=== PATIENT | female | born 1985 ===

== ENCOUNTER → 2018-10-14 | Outpatient (CLI) | payer SELFPAY ==
[~2018-10-14] MED LIST: CETI-176 PO; ESC10 PO; PREN-127 PO
== END ==
LOC: LAB 16:25
PROVIDERS: ATTEND Obstetrics & Gynecology
DX: Z34.01 Encounter for supervision of normal first pregnancy, first trimester (principal)
CPT/HCPCS: 87491; 87591

== ENCOUNTER → 2019-01-20 | Outpatient (CLI) | payer SELFPAY ==
--- NOTE | 2019-01-20 13:37 | RADIOLOGY IMAGING REPORT ---
FACILITY: [facility] [place] PATIENT NAME: Yamilet Pineda : 1985 MR: [id number] V: [id number] EXAM DATE: ORDERING PHYSICIAN: FRANKIE URBAN TECHNOLOGIST: Location: [facility] Patient: Yamilet Pineda : 1985 Visit/Account:[id number] Date of Sevice: 01/20/2019 EXAMINATION: Ultrasound transabdominal OB > 14 weeks with anatomic evaluation HISTORY: Anatomic survey COMPARISON: None. TECHNIQUE: Transabdominal imaging was performed for assessment of the fetus and maternal pelvic structures. T ransvaginal imaging was not performed. FINDINGS: Placenta: Posterior without previa. Uterus: Gravid, otherwise normal Cervix: Long and closed. A transvaginal scan was not performed for cervical length. On the transabd ominal images the cervix appears to be approximately 3.9 cm in length Maternal Ovaries: Not visualized. Maternal and other adnexa findings: Not evaluated Intrauterine gestations: One. presentation: Breech heart rate: Normal at 143 bpm Amniotic fluid index: 21.57 cm Largest amniotic fluid pocket: 5.7 cm Gestational Parameters: BPD: 5.32 cm 22 weeks/ two days, 31% HC: 20.56 cm 22 weeks/ five days, 41% AC: 18.13 cm 23 weeks/ zero days, 55% FL: 4.03 cm 23 weeks/ one days, 35% Average ultrasound age (AUA): 22 weeks/six days, BALWINDER 05/20/2019 Estimated gestational age by BALWINDER: 22 weeks/four days, BALWINDER 05/22/2019 Estimated weight (EFW): By 47 grams +/- 80 grams EFW for BALWINDER: 61 percentile Anatomic Survey: Intracranial structures, 4-chamber heart, stomach, kidneys, urinary bladder, spine, 3-vessel cord and cord insertion are unremarkable. Two upper and two lower extremities visualized. Cardiac ventricula r outflow tracts, palate and lips are unremarkable in appearance. IMPRESSION: Single viable fetus in breech presentation with an estimated gestational age by measurem ents of 22 weeks and six days. Estimated age by LMP is 22 weeks and four days. Transvaginal scan was not performed to evaluate cervical length. The cervical length by transabdomin al images was approximately 3.9 cm Report Dictated By: Maddison Teran MD at 01/20/2019 1:24 PM Report E-Signed By: Maddison Teran MD at 01/20/2019 1:33 PM WSN:[email or web address]
== END ==
LOC: US 11:04
PROVIDERS: ATTEND Obstetrics & Gynecology
DX: Z02.9 Encounter for administrative examinations, unspecified (principal)

== ENCOUNTER → 2019-03-03 | Outpatient (CLI) | payer SELFPAY ==
[~2019-03-03] MED LIST changes: +CLOB15OI16 TP; +DIPH0.5S2 IM; +RHO(150015 IM
[2019-03-03 15:54] LABS: PLATELET COUNT, AUTOMATED 259 K/uL (150-450)
== END ==
LOC: LAB 08:20
PROVIDERS: ATTEND Obstetrics & Gynecology
DX: Z34.82 Encounter for supervision of other normal pregnancy, second trimester (principal)
CPT/HCPCS: 36415; 82950; 85025

== ENCOUNTER → 2019-04-08 | Outpatient (CLI) | payer SELFPAY ==
--- NOTE | 2019-04-08 14:30 | RADIOLOGY IMAGING REPORT ---
FACILITY: [facility] [place] PATIENT NAME: Yamilet Pineda : 1985 MR: [id number] V: [id number] EXAM DATE: ORDERING PHYSICIAN: BILLY LOUIS TECHNOLOGIST: Location: [facility] Patient: Yamilet Pineda : 1985 Visit/Account:[id number] Date of Sevice: 04/08/2019 EXAMINATION: Ultrasound transabdominal OB > 14 weeks with anatomic evaluation HISTORY: Size greater than dates COMPARISON: January 20, 2019 TECHNIQUE: Transabdominal imaging was performed for assessment of the fetus and maternal pelvic structures. T ransvaginal imaging was not performed. FINDINGS: Placenta: Posterior without previa. Uterus: Gravid, otherwise normal Cervix: Not evaluated Maternal Ovaries: Not visualized. Maternal and other adnexa findings: Not evaluated Intrauterine gestations: One. presentation: Cephalic heart rate: Normal and regular at 138 bpm Amniotic fluid index: 22.25 cm Largest amniotic fluid pocket: 7.92 cm Gestational Parameters: BPD: 8.9 cm 36 weeks/ one days, 95% HC: 32.2 cm 36 weeks/ free days, 81% AC: 30.8 cm 34 weeks/ six days, 81% FL: 6.69 cm 34 weeks/ three days, 59% Average ultrasound age (AUA): 35 weeks/four days, BALWINDER 05/09/2019 Estimated gestational age by BALWINDER: 33 weeks/five days, BALWINDER 05/22/2019 Estimated weight (EFW): 2560 g grams +/- 374 grams EFW for BALWINDER: 80 percentile Anatomic Survey: Anatomic survey not performed IMPRESSION: Single viable fetus in cephalic presentation with an estimated gestational age by measur ements of 35 weeks and four days. Estimated gestational age by LMP is 33 weeks and five days. The estimated weight is 2560 g equivalent to the 80th percentile SHAWNA measured 22.25 with the MVP at 7.92 Report Dictated By: Maddison Teran MD at 04/08/2019 2:20 PM Report E-Signed By: Maddison Teran MD at 04/08/2019 2:25 PM WSN:VINNY
== END ==
LOC: US 12:50
PROVIDERS: ATTEND Obstetrics & Gynecology
DX: O26.843 Uterine size-date discrepancy, third trimester (principal)
CPT/HCPCS: 76815

== ENCOUNTER → 2019-04-28 | Outpatient (CLI) | payer SELFPAY | LOC: LAB 11:32 | PROVIDERS: ATTEND Obstetrics & Gynecology | DX: Z36.85 Encounter for antenatal screening for Streptococcus B (principal) | CPT/HCPCS: 87081 ==

== ENCOUNTER 2019-05-16 06:13 | Inpatient (IN) | payer SELFPAY ==
[~2019-05-16] VITALS: Ht 165.1 cm; Wt 77.6 kg
[2019-05-16] MEDS: PENICILLIN G 2.5 MILLUN/100 ML 100 ML IVPB SCH ×4 (01:42→20:19)
[2019-05-16] MEDS ORDERED: FLUSH 10 ML SYR IVP PRN (06:15)
[2019-05-16] MEDS ORDERED: FAMOTIDINE(*) 20MG/50ML PREMIX 50 ML IVPB PRN (06:15)
[2019-05-16] MEDS ORDERED: METOCLOPRAMIDE 10 MG/2 ML SDV IVP PRN (06:15)
[2019-05-16] MEDS ORDERED: OXYTOCIN 30 UNIT/NS 500 ML 500 ML IV PRN ×2 (06:15→19:09)
[2019-05-16] MEDS ORDERED: LIDOCAINE 1% LOCAL 300 MG/30ML INJ PRN (06:15)
[2019-05-16] MEDS ORDERED: LIDOCAINE/SOD BICARB 8.4% SYR SC PRN (06:15)
[2019-05-16] MEDS ORDERED: fentaNYL CITR 100 MCG/2 ML AMP IVP PRN (06:15)
[2019-05-16] MEDS ORDERED: ceFAZolin(*) 2GM/D5W 50ML 50 ML IVPB PRN (06:15)
[2019-05-16 06:30] VITALS: BP 118/68; Ht 165.1 cm; Wt 77.6 kg
[2019-05-16] MEDS ORDERED: PENICILLIN G 5 MILLUN VIAL 5 MIU in NS(*) 0.9% 100 ML MINI-BAG 100 ML IVPB ONE (06:30)
[2019-05-16] MEDS: LR(*) 1000 ML BAG 1,000 ML IV SCH ×2 (06:47→19:14)
[2019-05-16 06:57] LABS: PLATELET COUNT, AUTOMATED 236 K/uL (150-450)
--- NOTE | 2019-05-16 09:46 | History & Physical ---
History of Present Illness Age of Patient: 33 : 4 Para or TPAL: 3 EDC per LMP: May 22, 2019 EDC per U/S: May 16, 2019 Estimated Gestational Age: 39.1 Chief Complaint IUP at 39 1/7 here for IOL History of Present Illness 33 year old here for IOL due h/o precipitous delivery and living more than 1 hr from hospital. healthy. GBS +. RH- and rec'd rhogam at 28 weeks. History Patient's Blood Type: A Negative Rubella Status: Immune Group B Strep Screen: Positive Allergies: Coded Allergies: Gadolinium-Containing Contrast Medi (Verified Allergy, Mild, HIVES, 04/28/19) acetaminophen (Verified Allergy, Unknown, SLEEPY, 04/28/19) PT REPORTS "IT MAKES ME SLEEPY" animal dander (Verified Allergy, Unknown, ITCHING, 10/14/18) grass pollen (Verified Allergy, Unknown, 10/14/18) iodine (Verified Allergy, Unknown, HIVES, 10/14/18) pollen extracts (Verified Allergy, Unknown, 10/14/18) Med Rec Home Meds Active Scripts Clobetasol Propionate (CLOBETASOL PROPIONATE) 15 Gm Oint...g., 1 ANDREA TP BID, #1 TUBE 0 Refills Apply twice daily to affected area Prov:FRANKIE URBAN MD 02/17/19 Reported Medications Vits W-Ca,Fe,Fa(<1MG) ( VITAMINS) 1 Each Tablet, 1 EACH PO DAILY, TAB 10/14/18 Escitalopram Oxalate (LEXAPRO) 10 Mg Tab, 10 MG PO, TAB 10/14/18 Cetirizine Hcl (ZYRTEC) 10 Mg Tablet, 10 MG PO QDAY, TAB 10/14/18 Exam General Exam Vital Signs Vital Signs Date Time Temp Pulse Resp B/P (MAP) Pulse Ox O2 Delivery O2 Flow Rate FiO2 05/16/19 06:30 98.3 86 16 118/68 (85) 98 Room Air General Apperance: Alert/Awake/No Acute Distress Neuro: No Gross deficits Eyes: Normal Extraocular Movement & Vison Respiratory: No Respiratory Distress Abdomen: Gravid - Non-Tender Extremities: No Cyanosis,Clubbing or Edema Integumentary: Skin Intact without Lesions or Rash Psychological: Alert & Oriented X3, Appropriate Mood & Affect Cervical Dialation: 4 Cervical Effacement (%): 70 Cervical Consistency: Soft Cervical Position: Anterior Station: -2 Presentation: Vertex (confirmed by BSUS) Uterine Contractions(Q min): 0 Uterine Contraction Strength: Mild UC Resting Tone: Soft Fetus Feeling Movement?: Yes Heart Tone Variabilty: Moderate FHT Accelerations: 15X15 FHT Decelerations: None FHT Category: I Medical Decision Making Data Points Result Diagram: 05/16/19 0628 Assessment and Plan TURNER OFF Assessment: Stable TURNER OFF Plan: Routine Labor/Induct Care Problems: (1) Supervision of elderly multigravida Assessment & Plan: GBS prophylaxis with PCN started. Will plan amniotomy after second dose of abx. Pt does not want pitocin if possible. Problem Qualifiers (1) Supervision of elderly multigravida: Trimester: third trimester Qualified Codes: O09.523 - Supervision of elderly multigravida, third trimester BILLY LOUIS DO May 16, 2019 09:46
[2019-05-16] MEDS ORDERED: TERBUTALINE SULF 1 MG/ML VIAL SUBQ PRN (20:45)
--- NOTE | 2019-05-16 21:52 | Labor Progress Note ---
Labor Subjective Progress Notes Subjective PT feeling pelvic pressure. On pitocin at this time, pit at 10 mu. Clear fluid leaking, SROM around 1430 earlier today. GBS prophylaxis continuing. 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
[2019-05-17] MEDS ORDERED: BUPIVACAINE 0.25% MPF INJ EPI PRN (01:00)
[2019-05-17] MEDS ORDERED: FENTANYL/ROPIVACAINE 100 ML BAG EPI PRN (01:00)
[2019-05-17] MEDS ORDERED: fentaNYL CITR 100 MCG/2 ML AMP IT PRN (01:00)
[2019-05-17] MEDS ORDERED: LIDO/EPI 2% MPF 1:200,000 20ML EPI PRN (01:00)
[2019-05-17] MEDS ORDERED: LIDOCAINE/PF 2% 200MG/10ML AMP 200 MG/10 ML AMPUL EPI PRN (01:00)
[2019-05-17] MEDS ORDERED: BUPIVACAINE 0.5% INJ 30ML VIAL EPI PRN (01:00)
[2019-05-17] MEDS ORDERED: ONDANSETRON 4 MG/2 ML VIAL ONE (01:12)
[2019-05-17] MEDS ORDERED: ePHEDrine 25 MG/5 ML DISP.SYR IVP ONE (01:13)
--- NOTE | 2019-05-17 02:02 | Anesthesia OB Pre-Anes Eval ---
History of Present Illness Anesthesia Start Date: May 17, 2019 Anesthesia Start Time: 01:13 OB Anesthesia Diagnosis: induction - elective EDC: May 22, 2019 : 6 Para: 3 Vital Signs: Vital Signs Pain Ratin Heart Tones: 121 Result Diagram: 05/16/19 0628 Height (Inches): 65.00 Weight (Pounds): 171 Past Medical History Medical History: no pertinent history Surgical History: noncontributory Previous Anesthesia: epidural Attended Childbirth Classes?: No Hx Anesthesia Reactions: No Hx Family Anesthesia Reaction: No Current Medications: pitocin, pain medication Home Meds Active Scripts Clobetasol Propionate (CLOBETASOL PROPIONATE) 15 Gm Oint...g., 1 ANDREA TP BID, #1 TUBE 0 Refills Apply twice daily to affected area Prov:FRANKIE URBAN MD 02/17/19 Reported Medications Vits W-Ca,Fe,Fa(<1MG) ( VITAMINS) 1 Each Tablet, 1 EACH PO DAILY, TAB 10/14/18 Escitalopram Oxalate (LEXAPRO) 10 Mg Tab, 10 MG PO, TAB 10/14/18 Cetirizine Hcl (ZYRTEC) 10 Mg Tablet, 10 MG PO QDAY, TAB 10/14/18 Allergies: Coded Allergies: Gadolinium-Containing Contrast Medi (Verified Allergy, Mild, HIVES, 04/28/19) acetaminophen (Verified Allergy, Unknown, SLEEPY, 04/28/19) PT REPORTS "IT MAKES ME SLEEPY" animal dander (Verified Allergy, Unknown, ITCHING, 10/14/18) grass pollen (Verified Allergy, Unknown, 10/14/18) iodine (Verified Allergy, Unknown, HIVES, 10/14/18) pollen extracts (Verified Allergy, Unknown, 10/14/18) Anesthesia OB ROS Neurological: No migraines/headaches, No seizures, No neuropathy, No other ENT: Denies Tooth caps, Denies Loose teeth, Denies Chipped teeth, Denies Dentures, Denies Bridges, Denies Retainers, Denies Veneers, Denies Implants, Denies Tongue ring, Denies Other Pulmonary: No asthma, No smoker (pks/day/yrs), No other Airway Class: ll Cardiovascular ROS: No edema, No arrhythmia, No other GI ROS: clear liquids Last Solids Date: May 17, 2019 Last Solids Time: 19:00 ROS: No Herpes, No STD(s), No Liver Disease, No Renal Disease, No Other Endocrine ROS: No diabetes, No gestational diabetes, No thyroid disorder, No other Musculoskeletal ROS: No low back pain, No low back injury, No scoliosis, No other ASA Classification: 2 Assessment and Plan Anesthesia Plan: RONEL CANAS CRNA May 17, 2019 02:01
--- NOTE | 2019-05-17 02:06 | Procedure Note ---
Anesthetic Placement Note Anesthesia Plan: CSE Permit for Anesthesia Signed: Yes Anesthesia Technique: Patient Sitting Anesthesia Prep: Chlorhexidine Interspace: L 3-4 Local Anesthetic: 1% Lidocaine Amount Local - cc's: 3 Anesthesia Needle: 17g Touhy/Schliff Anesthesia Attempts: 1 Loss of Resistance: Normal Saline Depth of GEETA (cm): 4 Epidural Needle Placement: No CSF, No Blood, No Parasthesia Intrathecal Needle: 27 Gauge Pencan Cerebral Spinal Fluid: Yes, Clear Catheter Insertion (cm): 4 (8cm @skin) Catheter Type: [place] - Spring Wound Epidural Dressing: Tegaderm Anesthesia Tray: Lot Number ([id number]), Expiration Date (04/21), Reference Number ([id number]) Anesthesia Medications: Intrathecal Dose: mcg Fentanyl (10), mg Marcaine MPF (2.5), Time (0124) Epidural Test Dose: 1.5 Lido/Epi (1:200,000), Dose - mL (3), Time (0126), Negative Epidural Infusion: 0.2% Ropivicaine, With Fentanyl 2mcg/ml, Start Time: (0150) Epidural Pump Setting: Bolus Dose - mL (8), Lockout - Minutes (20), Maintenance Rate - mL/hr (6), Maximum per Hour - mL (30) Complications: None RONEL HENSLEY CRNA May 17, 2019 02:06
[2019-05-17] MEDS ORDERED: PENICILLIN G 2.5 MILLUN/100 ML 100 ML IVPB SCH (03:00)
--- NOTE | 2019-05-17 05:53 | Anesthesia Progress Note ---
Assessment and Plan Anesthesia Plan: CSE Anesthesia Stop Day: May 17, 2019 Anesthesia Stop Time: 05:40 RONEL HENSLEY CRNA May 17, 2019 05:53
--- NOTE | 2019-05-17 05:54 | OB Delivery Note ---
Delivery Note Vaginal Delivery Type: Spont. Vaginal Delivery Delivery Date: May 17, 2019 Delivery Time: 05:17 Estimated Gestational Age(wks): 39 Delivery Anesthesia: Epidural Sex: Male [place] Apgars: 1 Minute (8), 5 Minute (9) Repair Needed: Episiotomy-Midline (repaired with 3.0 vicryl in usual fashion) Delivery Complications: Nuchal Cord (tight x1, delivered through) Notes: pt pushed to deliver a viable male in the BASILIO position over a second degree midline episiotomy. MLE performed due to nonreassuring status. Head and shoulders delivered with the following push. Nuchal cord x 1, tight, delivered through and reduced after delivery. placed on mom's chest. Nose and mouth bulb suctioned. 3VC clamped and cut after 30 sec delay. MLE repaired in usual fashion using 3.0 vicryl. Spontaneous delivery of intact placenta at 0521. EBL 250 cc. I performed entire delivery and repair unassisted. Contact Center Director in Attendence: BILLY Awad DO May 17, 2019 05:54
[2019-05-17] MEDS ORDERED: HYDROCORTISONE 2.5% CR 30GM TB PR PRN (05:55)
[2019-05-17] MEDS ORDERED: MEASLES,MUMP,RUBELLA VAC 0.5ML SUBQ ONE (05:55)
[2019-05-17] MEDS ORDERED: DIPHTH/TETANUS/ACEL. PERTUSSIS IM ONLY ONE (05:55)
[2019-05-17] MEDS ORDERED: INFLUENZA VIRUS VAC 0.5ML SYR IM ONLY ONE (05:55)
[2019-05-17] MEDS ORDERED: LANOLIN OINT 7 GM TUBE TP PRN (05:55)
[2019-05-17] MEDS ORDERED: GLYCERIN/WITCH HAZEL LEAF 1 PK TP PRN (05:55)
[2019-05-17] MEDS ORDERED: MAGNESIUM HYDROXIDE* 30ML UDCP PO PRN (05:55)
[2019-05-17] MEDS ORDERED: LIDOCAINE 1% LOCAL 300 MG/30ML 30 ML ONE (06:17)
[2019-05-17] MEDS ORDERED: LIDOCAINE 1% LOCAL 300 MG/30ML INJ PRN ×2 (07:20→07:25)
[2019-05-17] MEDS ORDERED: LR(*) 1000 ML BAG 2,000 ML ONE (07:23)
[2019-05-17 07:27] VITALS: BP 102/55
[2019-05-17] MEDS: IBUPROFEN 800 MG TAB PO SCH ×2 (09:49→17:11)
[2019-05-17] MEDS: BENZOCAINE 20% 60 ML BTL TP PRN (09:49)
[2019-05-17] MEDS: DOCUSATE CALCIUM 240 MG CAP PO SCH ×2 (09:50→20:22)
[2019-05-17] MEDS: MULTIVITAMINS (PRENATAL) TAB PO SCH (09:50)
[2019-05-17 11:35] VITALS: BP 126/74
--- NOTE | 2019-05-17 13:51 | Anesthesia Post Eval Note ---
Anesthesia Post Eval Note Vital Signs 05/17/19 11:35 Temp 98.3 Pulse 117 Resp 18 B/P (MAP) 126/74 (91) O2 Delivery Room Air Pt able to participate in Eval: Yes Cardiovascular Status: Satisfactory Respiratory Status: Satisfactory Pain Managment: Satisfactory PO Nausea/Vomiting: Satisfactory Temperature Management: Satisfactory Mental Status: Satisfactory, Alert, Oriented X3 Post-Op Hydration Status: Satisfactory, Tolerating PO Well, Voiding w/o Difficulty Anesthesia Type: CSE RONEL HENSLEY CRNA May 17, 2019 13:51
--- NOTE | 2019-05-17 14:19 | OB/GYN Progress Note ---
OB Subjective Progress Notes Subjective Pt is feeling well other than being very tired from the long labor. She did just wake up from a nap and feeling a little refreshed. She reports that she is tolerating her cramping and perineal pain well with ibuprofen. is going well and she denies nipple pain or discomfort. She would like to go home t omorrow. GI: POS Flatus; NEG Nausea, NEG Vomiting, NEG Bowel Movement : Voiding Well, Vaginal Bleeding, Moderate Pain: Mild, Tolerating PO Pain Meds Neurological: No Headache Eyes: No Visual Disturbances OB Objective Physical Exam Vital Signs Date Time Temp Pulse Resp B/P (MAP) Pulse Ox O2 Delivery O2 Flow Rate FiO2 05/17/19 11:35 98.3 117 18 126/74 (91) Room Air 05/16/19 06:30 98 Intake and Output 05/17/19 07:02 Intake Total 1100 ml Output Total 200 ml Balance 900 ml Intake Oral 800 ml IV Total 300 ml Output Urine Total 200 ml # Voids 4 General Appearance: Alert/Awake/No Acute Distress Neurological: No Gross deficits Eyes: Normal Extraocular Movement & Vison ENT: Normal Respiratory: No Respiratory Distress, Other (LS decreased, hx of asthma) Extremities: No Cyanosis,Clubbing or Edema, Warm, Pulses; No Tender Calves, No Edema Integumentary: Skin Intact without Lesions or Rash Psychological: Alert & Oriented X3, Appropriate Mood & Affect Result Diagram: 05/16/19 0628 Assessment and Plan 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 Pt had an episiotomy d/t NRFT at the end of pushing. She is tolerating her pain well. She is meeting all milestones and will plan to be dc'd tomorrow. Problem Qualifiers (1) Supervision of elderly multigravida: Trimester: third trimester Qualified Codes: O09.523 - Supervision of elderly multigravida, third trimester ANNAMARIE TAVAREZ CNM May 17, 2019 14:19
[2019-05-17 15:30] VITALS: BP 118/64
[2019-05-17 20:00] VITALS: BP 120/58
[2019-05-18 00:45] VITALS: BP 97/58
[2019-05-18] MEDS: IBUPROFEN 800 MG TAB PO SCH ×2 (00:50→09:39)
[2019-05-18 03:12] VITALS: BP 101/55
[2019-05-18] MEDS ORDERED: FERROUS SULFATE 325 MG TAB PO SCH (08:00)
[2019-05-18 08:40] VITALS: BP 109/59
[2019-05-18] MEDS: MULTIVITAMINS (PRENATAL) TAB PO SCH (09:39)
[2019-05-18] MEDS: DOCUSATE CALCIUM 240 MG CAP PO SCH (09:39)
[2019-05-18] MEDS ORDERED: DOCU240C67 PO (10:13)
[2019-05-18] MEDS ORDERED: IBUP800T37 PO (10:13)
[2019-05-18] MEDS ORDERED: FERR-53 PO (10:13)
--- NOTE | 2019-05-18 10:14 | OB/GYN Discharge Summary ---
Discharge Summary Reason for Hosp/Final Diag: (1) Supervision of elderly multigravida Status: Resolved (2) care and examination Onset Date: ~ 05/17/2019 Status: Acute Hospital Course & Plan: Admission Diagnoses: 39wk Elective IOL for remote from hospital Reason for Hospitalization: elective induction, labor, delivery and Procedures Performed: Midline Episiotomy Delivery Type: Hospital Course: 39 Elective IOL with adequate GBS prophylaxis, SROM for clear fluid, Pitocin augmentation, midline Episiotomy for NRFT during pushing and delivery. Critical H/H, started on Ferrous sulfate in hospital and will go home on iron as well. Delivery Information: see delivery note Estimated blood loss: 250cc Episiotomy: midline Laceration: second degree Pain Management: epidural Subjective: Pt is feeling very well today and ready to go home. Her H/H is low today, but she is asymptomatic other than feeling very tried.Voiding well and on RA Abdominal pain: minimal cramping, tolerating with PO ibuprofen Perineal pain: Mild, using Dermoplast and ibuprofen Vaginal bleeding: minimal to scant without clots Flatus: yes UTI symptoms: Denies Feeding modality: Breast Problems with breast feeding: None Bowel movement: no Ambulating: yes Preeclampsia symptoms: denies Nausea/vomiting: none experience: Very satisfied Objective Exam: Vitals: Normotensive, afebrile Breasts: Soft, nontender, nipples intact without cracks or bleeding, +colostrum Abdomen: FF at the U Perineum: healing well with good approximation Lochia: moderate no large clots Extremities: BLE soft, nontender, -homans sign Disposition: Patient discharged to home in medically stable condition. No Known Allergies Medication Instructions Given to the Patient at Discharge: Ibuprofen 800mg PO TID for 5-7 days as needed Colace 240Mg PO BID while taking Iron Ferrous Sulfate 325mg PO BID Anemia Lexapro 10mg PO daily Follow-up Appointment: 2&6 weeks Activity/Restrictions: Pelvic rest; nothing in vagina for six weeks. Return Precautions: Patient instructed to call the clinic or return to hospital for fever > 101 degree F; chills; severe nausea or vomiting; inability to tolerate anything by mouth for > 24 hours; increasingly severe abdominal/pelvic pain; foul smelling vaginal discharge; vaginal bleeding > 1 pad per hour for > 2 hours; separation, drainage, or redness of incision or laceration site. Reviewed depression and pre-eclampsia s/s and when to seek care. Lates Vital Signs Vital Signs Date Time Temp Pulse Resp B/P (MAP) Pulse Ox O2 Delivery O2 Flow Rate FiO2 05/18/19 03:12 98.3 78 16 101/55 (70) Room Air 05/16/19 06:30 98 Weight (Pounds): 171 Result Diagram: 05/18/19 0529 Condition: Improved Discharge: Home Home Meds Active Scripts Escitalopram Oxalate (LEXAPRO) 10 Mg Tab, 10 MG PO DAILY, #30 TAB 6 Refills Prov:ANNAMARIE TAVAREZ [facility] 05/18/19 Ibuprofen (IBUPROFEN) 800 Mg Tablet, 800 MG PO Q8H, #30 TAB 1 Refill Prov:ANNAMARIE TAVAREZ [facility] 05/18/19 Ferrous Sulfate (FERROUS SULFATE) 325 Mg Tablet, 325 MG PO BIDBS, #60 TAB 2 Refills Prov:ANNAMARIE TAVAREZ [facility] 05/18/19 Docusate Calcium (DOCUSATE CALCIUM) 240 Mg Capsule, 240 MG PO BID, #60 CAPSULE 2 Refills Prov:ANNAMARIE TAVAREZ [facility] 05/18/19 Clobetasol Propionate (CLOBETASOL PROPIONATE) 15 Gm Oint...g., 1 ANDREA TP BID, #1 TUBE 0 Refills Apply twice daily to affected area Prov:FRANKIE URBAN MD 02/17/19 Reported Medications Vits W-Ca,Fe,Fa(<1MG) ( VITAMINS) 1 Each Tablet, 1 EACH PO DAILY, TAB 10/14/18 Cetirizine Hcl (ZYRTEC) 10 Mg Tablet, 10 MG PO QDAY, TAB 10/14/18 Follow up Referrals: SURGERY SPECIALIST @ [facility] with BILLY LOUIS DO Follow up in: 2 wks PO Discharge Diet: As Tolerates, Resume Prior Admit Diet, Increase Fluid Intake Discharge Activity: As Tolerates, Pelvic Rest Special Instructions: Problem Qualifiers (1) Supervision of elderly multigravida: Trimester: third trimester Qualified Codes: O09.523 - Supervision of elderly multigravida, third trimester ANNAMARIE TAVAREZ [facility] May 18, 2019 10:14
[2019-05-18] MEDS ORDERED: ESC10 PO (10:15)
[2019-05-18] MEDS: BENZOCAINE 20% 60 ML BTL TP PRN (12:35)
== END 2019-05-18 12:25 | disposition home or self-care (01) | DRG 806 ==
LOC: OB 06:13
PROVIDERS: ADMIT Obstetrics & Gynecology; ATTEND Obstetrics & Gynecology
PROC: 3E033VJ Introduction of Other Hormone into Peripheral Vein, Percutaneous Approach (ICD-10-PCS; 2019-05-16)
PROC: 10E0XZZ Delivery of Products of Conception, External Approach (ICD-10-PCS; principal; 2019-05-17)
PROC: 0W8NXZZ Division of Female Perineum, External Approach (ICD-10-PCS; 2019-05-17)
DX: O99.824 Streptococcus B carrier state complicating childbirth (principal); O36.0130 Maternal care for anti-D [Rh] antibodies, third trimester, not applicable or unspecified; Z37.0 Single live birth; O69.1XX0 Labor and delivery complicated by cord around neck, with compression, not applicable or unspecified; Z88.8 Allergy status to other drugs, medicaments and biological substances; Z3A.39 39 weeks gestation of pregnancy
CPT/HCPCS: 36415; 85025; 85027; 85461; 86850; 86870; 86900; 86901; J2001; J2405; J2540; J2590; J3010; J7120